=== PATIENT | male | born 1960 | race Two or more races ===

== ENCOUNTER → 2024-11-11 | Outpatient (CLI) | payer OTHER, MEDICAID, SELFPAY ==
--- NOTE | 2024-11-11 11:00 | XR_ITS ---
Examination: Ultrasound abdominal aorta TECHNIQUE: Grayscale sonographic images abdominal aorta Exam date and time: November 11, 2024 1128 hours INDICATIONS: Nicotine dependence, smoking 15 years FINDINGS: Transverse dimension proximal aorta 23 mm mid aorta 18 mm distal aorta 19 mm right iliac artery 9 mm left iliac artery 10 mm IMPRESSION: Negative for abdominal aortic aneurysm
== END | disposition home or self-care (01) ==
PROVIDERS: PCP Family Medicine; Referring Provider Nurse Practitioner Family; Visit Provider Nurse Practitioner Family
DX: F17.210 Nicotine dependence, cigarettes, uncomplicated (principal)
CPT/HCPCS: 76706

== ENCOUNTER → 2024-11-12 | Outpatient (CLI) | payer OTHER, MEDICAID, SELFPAY ==
--- NOTE | 2024-11-12 09:15 | XR_ITS ---
Examination: MRI lumbar spine without contrast Date and time of exam: November 12, 2024 1029 hours INDICATIONS: Low back pain radiating down the right leg beginning 4 years ago Technique: Multiple MRI axial and sagittal sections lumbar spine. Sagittal T2-weighted images, TR 3500, TE 118 T1 weighted transverse sections, TR 688 T8.5, T2-weighted sagittal sections T1 weighted sagittal sections TR 621, TE 30 T2 axial sections, TR 4, 190, TE 84. Findings: Adequate alignment lumbar vertebral bodies Disc desiccation L2-L3, L3-L4, L5-S1 No lumbar fracture No spondylolisthesis L5-S1 4 mm central right paracentral disc bulge displacing the right S1 nerve root posteriorly L4-L5 no disc protrusion L3-L4 2 mm central lumbar disc bulge L2-L3 no disc protrusion L1-L2 no disc protrusion IMPRESSION: L5-S1 4 mm central right paracentral disc bulge displacing the right S1 nerve root
== END | disposition home or self-care (01) ==
LOC: SMRI 11-13 07:29
PROVIDERS: PCP Nurse Practitioner Family; Referring Provider Nurse Practitioner Family; Visit Provider Nurse Practitioner Family
DX: M51.379 Other intervertebral disc degeneration, lumbosacral region without mention of lumbar back pain or lower extremity pain (principal)
CPT/HCPCS: 72148